=== PATIENT | female | born 1960 | race African-American/Black ===

== ENCOUNTER 2017-02-02 08:59 | Emergency (ER) | payer OTHER, MEDICAID ==
[~2017-02-02] VITALS: Ht 154.9 cm; Wt 53.5 kg
[~2017-02-02 08:59] MED LIST: AUGMENTIN 875-1 EAC1 ORAL; INDOCIN25 MG ORAL; NORCO 5-325 TA1 EACH ORAL; ZOFRAN ODT4 MG ORAL
[2017-02-02] MEDS ORDERED: oxyCODONE HCL/Acetaminophen 5/325mg ORAL ONE (09:30)
--- NOTE | 2017-02-02 09:31 | Emergency Room Report ---
History of Present Illness General Chief Complaint: Toothache Source: Patient Present Illness HPI Patient is having tooth pain. She is also vomiting. Any time any liquid is in contact with the tooth, she is in severe pain. Denies any fevers or chills. No weight loss. No medication at home for pain. Pain is 10/10, L lower tooth, aching pressure - radiates slightly to angle of jaw and neck. Trouble sleeping.. Has been seen for similar in past. - last here 2014. Prior h/o bilateral inguinal hernias which spontaneously reduce. No dysuria, diarrhea, rashes. Allergies: Coded Allergies: UNABLE TO ASSESS (Unverified , 02/02/17) Pt states she was given a "heart medication" in which she had an allergic reaction to, cannot recall name. Patient History Past Medical History: see triage record Social History: Reports: smoking Social History Narrative at home Last Menstrual Period: Hysterectomy Reviewed Nursing Documentation: PMH: Agreed, PSxH: Agreed Nursing Documentation-PMH Hx Cardiac Problems: Yes - Mitral valve prolapse. Hx Cancer: Yes - Cancer cells=hysterectomy. Hx Neurological Problems: Yes - Neck/spine surgery. Review of Systems All Other Systems: negative except mentioned in HPI Physical Exam Vital Signs Date Time Temp Pulse Resp B/P (MAP) Pulse Ox O2 Delivery O2 Flow Rate FiO2 02/02/17 09:12 98.4 69 20 110/75 99 Room Air Sp02 EP Interpretation: reviewed, normal General Appearance: well appearing, no apparent distress Head: normocephalic, atraumatic Eyes: bilateral eye normal inspection, bilateral eye PERRL ENT: hearing grossly normal, normal voice, moist mucus membranes, other - rear L lower molar with caries. No abscess visible. TTP Neck: full range of motion, supple Respiratory: no respiratory distress, speaking full sentences Cardiovascular #2: 2+ radial (L) Musculoskeletal: no calf tenderness Neurologic: alert, normal gait Psychiatric: mood/affect normal - but in pain Skin: no rash Medical Decision Making Diagnostic Impression: Primary Impression: Toothache Additional Impression: Vomiting Qualified Codes: R11.2 - Nausea with vomiting, unspecified ER Course Patient presents with painful tooth ache. The history and exam is consistent with dental ramon which is probably infected. Antibiotics and analgesics indicated. Improved with treatment. Patient stable for outpatient observation and treatment. Last Vital Signs Date Time Temp Pulse Resp B/P (MAP) Pulse Ox O2 Delivery O2 Flow Rate FiO2 02/02/17 09:45 98.4 20 110/75 99 Room Air 02/02/17 09:12 69 Status: improved Disposition: HOME, SELF-CARE Condition: Improved Scripts Amoxicillin* (AMOXIL*) 500 Mg Capsule 500 MG ORAL THREE TIMES A DAY, #21 CAP Prov: RUBÉN PINEDO D.O. 02/02/17 Amoxicillin* (AMOXIL*) 500 Mg Capsule 500 MG ORAL THREE TIMES A DAY, #21 CAP Prov: Surjit Medellin M.D. 02/02/17 Lidocaine HCl 2% Viscous (Lidocaine HCl 2% Viscous) 100 Ml Solution 1 APPLIC TOPIC QID, #30 ML Prov: Surjit Medellin M.D. 02/02/17 Ibuprofen* (MOTRIN*) 600 Mg Tablet 600 MG ORAL Q6H Y for For Pain, #16 TAB Prov: Surjit Medellin M.D. 02/02/17 Hydrocodone Bit/Acetaminophen 5-325* (NORCO 5-325*) 1 Each Tablet 1 TAB ORAL Q6H Y for For Pain, #10 TAB 0 Refills Prov: Surjit Medellin M.D. 02/02/17 Ondansetron Odt* (ZOFRAN ODT*) 4 Mg Tab.rapdis 4 MG ORAL Q8H Y for Nausea & Vomiting, #12 TAB 1 Refill Prov: Surjit Medellin M.D. 02/02/17 Referrals: NON PHYSICIAN (PCP) Surjit Medellin M.D. Feb 02, 2017 09:31
[2017-02-02] MEDS ORDERED: ZOFRAN ODT4 MG ORAL (09:35)
[2017-02-02] MEDS ORDERED: AMOXICILLIN500 MG ORAL ×2 (09:35→17:51)
[2017-02-02] MEDS ORDERED: IBUPROFEN600 MG ORAL (09:35)
[2017-02-02] MEDS ORDERED: LIDOCAINE VISC100 ML TOPIC (09:35)
[2017-02-02] MEDS ORDERED: NORCO 5-325 TA1 EACH ORAL (09:35)
[2017-02-02 09:45] VITALS: BP 110/75
== END 2017-02-02 09:45 | disposition home or self-care (01) ==
LOC: EMR 09:30
DX: K08.89 Other specified disorders of teeth and supporting structures (principal); R11.10 Vomiting, unspecified; Z85.89 Personal history of malignant neoplasm of other organs and systems
CPT/HCPCS: 99284

== ENCOUNTER 2017-07-09 01:07 | Emergency (ER) | payer MEDICAID, OTHER ==
[~2017-07-09] VITALS: Ht 165.1 cm; Wt 56.7 kg
[~2017-07-09 01:07] MED LIST changes: +AMOXICILLIN500 MG ORAL; +IBUPROFEN600 MG ORAL; +LIDOCAINE VISC100 ML TOPIC
[2017-07-09 01:23] VITALS: BP 132/73
[2017-07-09] MEDS ORDERED: ACETAMINOPHEN-1 EAC1 ORAL (01:37)
[2017-07-09] MEDS ORDERED: Norco 5mg/325mg tab ORAL ONE (01:45)
[2017-07-09] MEDS ORDERED: Ketorolac 60mg Inj IM ONE (01:45)
[2017-07-09 01:50] VITALS: BP 0/0
--- NOTE | 2017-07-09 04:03 | Emergency Room Report ---
History of Present Illness General Chief Complaint: Toothache Source: Patient Present Illness HPI Patient present with complaints of left lower dental pain after recent dental procedure She reports that she had root canal last Patient reports and now the discomfort has increased chest pain to the left lower jaw area also developed headache Increased nausea Initially patient had not reported any vomiting however Had told the nurse that she had nausea vomiting Denies any fevers or chills denies any neck pain Patient reports taking Motrin [id number] and is on antibiotics by the dentist Allergies: Coded Allergies: No Known Allergies (Unverified , 07/09/17) Patient History Past Medical History: see triage record Pertinent Family History: none Last Menstrual Period: n/a Reviewed Nursing Documentation: PMH: Agreed; PSxH: Agreed Nursing Documentation-PMH Past Medical History: No History, Except For Hx Cardiac Problems: Yes - Mitral valve prolapse. Hx Cancer: Yes - Cancer cells=hysterectomy. Hx Neurological Problems: Yes - Neck/spine surgery. Review of Systems All Other Systems: negative except mentioned in HPI Physical Exam Vital Signs Date Time Temp Pulse Resp B/P (MAP) Pulse Ox O2 Delivery O2 Flow Rate FiO2 07/09/17 01:11 98.0 67 16 132/73 100 Room Air 98.1 Sp02 EP Interpretation: reviewed, normal General Appearance: no apparent distress Head: normocephalic, atraumatic Eyes: bilateral eye PERRL, bilateral eye EOMI ENT: other - Left lower gingival area appears edematous, no trismus, airway is patent Neck: full range of motion, supple Respiratory: lungs clear Cardiovascular #1: regular rate, rhythm Gastrointestinal: non tender, soft Musculoskeletal: normal inspection Neurologic: alert, oriented x3 Skin: normal color Lymphatic: no adenopathy Medical Decision Making Diagnostic Impression: Primary Impression: Toothache ER Course Patient has some swelling to the left lower gingival area concerning for possible infectious pathology patient is under the care of specialty dental caretakers had recent procedure done Patient is on antibiotics she does require repeat evaluation by the dental specialist Patient was provided with pain medication here And is hemodynamically stable for continued outpatient follow-up Last Vital Signs Date Time Temp Pulse Resp B/P (MAP) Pulse Ox O2 Delivery O2 Flow Rate FiO2 07/09/17 01:49 98.0 07/09/17 01:11 67 16 132/73 100 Room Air Status: improved Disposition: HOME, SELF-CARE Condition: Stable Scripts Acetaminophen With Codeine (T#3) (TYLENOL #3 TAB*) Y Tab 1 TAB ORAL Q8H PRN for For Pain, #6 TAB Prov: Brice Bullock DO 07/09/17 Referrals: NON PHYSICIAN (PCP) Patient Instructions: Dental Pain Additional Instructions: Patient is provided with the discharge instructions notified to follow up with primary doctor in the next 2-3 days otherwise return to the er with any worsening symptoms. Please note that this report is being documented using [employer] technology. This can lead to erroneous entry secondary to incorrect interpretation by the dictating instrument. Brice Bullock DO July 09, 2017 04:03
== END 2017-07-09 01:50 | disposition home or self-care (01) ==
LOC: EMR 01:34
DX: K08.89 Other specified disorders of teeth and supporting structures (principal)
CPT/HCPCS: 96372; 99283

== ENCOUNTER 2018-03-23 20:21 | Emergency (ER) | payer OTHER, MEDICAID ==
[~2018-03-23] VITALS: Ht 157.5 cm; Wt 53.5 kg
[~2018-03-23 20:21] MED LIST changes: +ACETAMINOPHEN-1 EAC1 ORAL
[2018-03-23] MEDS ORDERED: NKM (20:30)
[2018-03-23 20:34] VITALS: BP 124/64
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
[2018-03-23] MEDS ORDERED: Methocarbamol 750mg tab ORAL ONE (21:00)
[2018-03-23] MEDS ORDERED: Ketorolac 60mg Inj IM ONE (21:00)
--- NOTE | 2018-03-23 21:21 | NUR ---
ED Nurse Note: medications unable to scan. manual bar code used. Rn susy verified medications.
[2018-03-23] MEDS ORDERED: ROBAXIN-750750 MG PO (21:45)
[2018-03-23] MEDS ORDERED: IBUPROFEN600 MG ORAL (21:45)
--- NOTE | 2018-03-23 21:50 | NUR ---
ED Nurse Note: pt d/c per ermd, pt given discharge and medication instructions. pt is aox4 and verbalized understanding. ID band removed. pt left ED with all belongings.
== END 2018-03-23 21:50 | disposition home or self-care (01) ==
LOC: EMR 20:50
DX: S13.9XXA Sprain of joints and ligaments of unspecified parts of neck, initial encounter (principal); S61.419A Laceration without foreign body of unspecified hand, initial encounter; Y08.89XA Assault by other specified means, initial encounter; Y92.9 Unspecified place or not applicable; R51 Headache; M54.9 Dorsalgia, unspecified; F17.200 Nicotine dependence, unspecified, uncomplicated; Z85.9 Personal history of malignant neoplasm, unspecified; Z90.710 Acquired absence of both cervix and uterus; Z98.890 Other specified postprocedural states
CPT/HCPCS: 96372; 99283

== ENCOUNTER 2018-05-02 11:21 | Emergency (ER) | payer OTHER, MEDICAID ==
[~2018-05-02] VITALS: Ht 152.4 cm; Wt 53.5 kg
[~2018-05-02 11:21] MED LIST changes: +NKM; +ROBAXIN-750750 MG PO
[2018-05-02 11:50] VITALS: BP 131/77
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
[2018-05-02] MEDS ORDERED: DiphenhydrAMINE 50mg/ml Inj IVP ONE (12:15)
[2018-05-02] MEDS ORDERED: D5NS 1,000 ML IV ONE (12:15)
--- NOTE | 2018-05-02 12:15 | NUR ---
ED Nurse Note: PT TO CT
--- NOTE | 2018-05-02 12:29 | NUR ---
ED Nurse Note: PT BACK FROM CT VIA WHEELCHAIR
[2018-05-02] MEDS ORDERED: Cyclobenzaprine 10mg Tab ORAL ONE (12:30)
[2018-05-02] MEDS ORDERED: Ketorolac 30mg Inj IV ONE (12:30)
[2018-05-02 12:46] LABS: BASOPHILS % (AUTO) 1.6 % (0.0-2.0); EOSINOPHILS % (AUTO) 1.3 % (0.0-3.0); HEMATOCRIT 37.1 % (37.0-47.0); HEMOGLOBIN 11.7 G/DL (12.0-16.0); LYMPHOCYTES % (AUTO) 39.8 % (20.0-45.0); MEAN CORPUSCULAR VOLUME 91 FL (80-99); MONOCYTES % (AUTO) 7.7 % (1.0-10.0); NEUTROPHILS % (AUTO) 49.7 % (45.0-75.0); PLATELET COUNT 186 K/UL (150-450); RED BLOOD COUNT 4.09 M/UL (4.20-5.40); RED CELL DISTRIBUTION WIDTH 12.8 % (11.6-14.8); WHITE BLOOD COUNT 6.2 K/UL (4.8-10.8)
--- NOTE | 2018-05-02 12:52 | Diagnostic Imaging Report ---
Indications: Headache, light sensitivity Technique: Spiral acquisitions obtained through the brain. Angled axial and coronal 5 x 5 mm slices were reconstructed. Total dose length product 1269.98 mGycm. CTDI vol(s) 70.38 mGy. Dose reduction achieved using automated exposure control Comparison: None. Findings: No acute intracranial hemorrhage nor edema. No mass effect nor midline shift. Normal hernandez-white differentiation. Normal size ventricles and extra-axial CSF spaces. Intact calvarium. Visualized orbits and sinuses are unremarkable. Impression: Negative The CT scanner at [facility] is accredited by the [employer] and the scans are performed using protocols designed to limit radiation exposure to as low as reasonably achievable to attain images of sufficient resolution adequate for diagnostic evaluation.
[2018-05-02 12:58] LABS: ANION GAP 9 mmol/L (5-15); BLOOD UREA NITROGEN 12 mg/dL (7-18); CALCIUM 9.8 MG/DL (8.5-10.1); CARBON DIOXIDE 30 MMOL/L (21-32); CHLORIDE 103 MMOL/L (98-107); CREATININE 0.6 MG/DL (0.55-1.30); POTASSIUM 3.6 MMOL/L (3.5-5.1); SODIUM 142 MMOL/L (136-145)
[2018-05-02 13:02] LABS: ALANINE AMINOTRANSFERASE 24 U/L (12-78); ALBUMIN 3.9 G/DL (3.4-5.0); ALKALINE PHOSPHATASE 85 U/L (46-116); ASPARTATE AMINO TRANSFERASE 26 U/L (15-37); BILIRUBIN,TOTAL 0.5 MG/DL (0.2-1.0)
[2018-05-02 13:16] LABS: APPEARANCE,URINE CLEAR; BILIRUBIN, URINE NEGATIVE (NEGATIVE); COLOR,URINE PALE YELLOW; GLUCOSE, URINE (UA) NEGATIVE (NEGATIVE); KETONES,URINE NEGATIVE (NEGATIVE); LEUKOCYTE ESTERASE ,URINE NEGATIVE (NEGATIVE); NITRITE,URINE NEGATIVE (NEGATIVE); PH,URINE 8 (4.5-8.0); PROTEIN,URINE NEGATIVE (NEGATIVE); UROBILINOGEN,URINE 1 MG/DL (0.0-1.0)
[2018-05-02 13:50] VITALS: BP 112/74
--- NOTE | 2018-05-02 14:33 | Emergency Room Report ---
History of Present Illness General Chief Complaint: Headache Source: Patient Present Illness HPI The patient states that a few days ago she woke up with pain in the right side of her neck and upper back. She denies trauma. She states that the pain is radiating to her head. She is also become sensitive to light and had an episode of vomiting. She states the pain is worse with movement. She denies sore throat or recent illness. She denies cough or congestion. She denies abdominal pain. She denies blurry vision. She has no other complaints. Allergies: Coded Allergies: No Known Allergies (Unverified , 07/09/17) Patient History Past Medical History: none, see triage record Past Surgical History: other - cervical spine surgery Social History: Denies: smoking, alcohol use, drug use Now: No Reviewed Nursing Documentation: PMH: Agreed; PSxH: Agreed Nursing Documentation-PMH Past Medical History: No History, Except For Hx Cardiac Problems: Yes - Mitral valve prolapse. Hx Cancer: Yes - Cancer cells=hysterectomy. Hx Neurological Problems: Yes - Neck/spine surgery. Review of Systems All Other Systems: negative except mentioned in HPI Physical Exam Vital Signs Date Time Temp Pulse Resp B/P (MAP) Pulse Ox O2 Delivery O2 Flow Rate FiO2 05/02/18 11:42 98.4 64 20 132/79 99 Room Air Sp02 EP Interpretation: reviewed, normal General Appearance: no apparent distress, alert, GCS 15, non-toxic Head: normocephalic, atraumatic Eyes: bilateral eye normal inspection, bilateral eye PERRL ENT: hearing grossly normal, normal pharynx, no angioedema, normal voice Neck: normal inspection, full range of motion, supple, supple/symm/no masses, tender lateral - Exquisitely ttp over the R. trapezius m. Also ttp over the scalp. Respiratory: chest non-tender, lungs clear, normal breath sounds, no respiratory distress, no retraction, no accessory muscle use, speaking full sentences Cardiovascular #1: regular rate, rhythm, no edema Gastrointestinal: normal bowel sounds, non tender, soft, non-distended, no guarding, no rebound Rectal: deferred Musculoskeletal: back normal, gait/station normal, normal range of motion, non- tender Neurologic: alert, oriented x3, responsive, motor strength/tone normal, sensory intact, speech normal Psychiatric: judgement/insight normal, memory normal, mood/affect normal, no suicidal/homicidal ideation Skin: normal color, no rash, warm/dry, well hydrated Medical Decision Making Diagnostic Impression: Primary Impression: Trapezius muscle spasm ER Course This patient has a clinical presentation consistent with trapezius muscle spasm. I did obtain a CT of the patient's head given the headache symptoms with the nausea and episode of vomiting and this was unremarkable. The patient has pain with range of motion and has tenderness to palpation along the trapezius muscle. There is no evidence of compartment syndrome. There is no neurologic deficit. The patient had complete resolution of her symptoms in the emergency department. The patient was instructed on supportive home measures. The patient states that she does have Robaxin at home. She states she will use this. No emergency medical condition was identified. The patient was given return precautions and followup instructions. Laboratory Tests Test 05/02/18 12:40 05/02/18 12:50 White Blood Count 6.2 K/UL (4.8-10.8) Red Blood Count 4.09 M/UL (4.20-5.40) L Hemoglobin 11.7 G/DL (12.0-16.0) L Hematocrit 37.1 % (37.0-47.0) Mean Corpuscular Volume 91 FL (80-99) Mean Corpuscular Hemoglobin 28.7 PG (27.0-31.0) Mean Corpuscular Hemoglobin Concent 31.6 G/DL (32.0-36.0) L Red Cell Distribution Width 12.8 % (11.6-14.8) Platelet Count 186 K/UL (150-450) Mean Platelet Volume 8.6 FL (6.5-10.1) Neutrophils (%) (Auto) 49.7 % (45.0-75.0) Lymphocytes (%) (Auto) 39.8 % (20.0-45.0) Monocytes (%) (Auto) 7.7 % (1.0-10.0) Eosinophils (%) (Auto) 1.3 % (0.0-3.0) Basophils (%) (Auto) 1.6 % (0.0-2.0) Sodium Level 142 MMOL/L (136-145) Potassium Level 3.6 MMOL/L (3.5-5.1) Chloride Level 103 MMOL/L (98-107) Carbon Dioxide Level 30 MMOL/L (21-32) Anion Gap 9 mmol/L (5-15) Blood Urea Nitrogen 12 mg/dL (7-18) Creatinine 0.6 MG/DL (0.55-1.30) Estimate Glomerular Filtration Rate > 60 mL/min (>60) Glucose Level 79 MG/DL (74-106) Calcium Level 9.8 MG/DL (8.5-10.1) Total Bilirubin 0.5 MG/DL (0.2-1.0) Aspartate Amino Transferase (AST) 26 U/L (15-37) Alanine Aminotransferase (ALT) 24 U/L (12-78) Alkaline Phosphatase 85 U/L (46-116) Total Protein 7.8 G/DL (6.4-8.2) Albumin 3.9 G/DL (3.4-5.0) Globulin 3.9 g/dL Albumin/Globulin Ratio 1.0 (1.0-2.7) Lipase 128 U/L (73-393) Urine Color Pale yellow Urine Appearance Clear Urine pH 8 (4.5-8.0) Urine Specific Romeo 1.015 (1.005-1.035) Urine Protein Negative (NEGATIVE) Urine Glucose (UA) Negative (NEGATIVE) Urine Ketones Negative (NEGATIVE) Urine Blood Negative (NEGATIVE) Urine Nitrite Negative (NEGATIVE) Urine Bilirubin Negative (NEGATIVE) Urine Urobilinogen 1 MG/DL (0.0-1.0) H Urine Leukocyte Esterase Negative (NEGATIVE) Urine HCG, Qualitative Negative (NEGATIVE) CT/MRI/US Diagnostic Results CT/MRI/US Diagnostic Results : Imaging Test Ordered: CT head Impression No acute findings. Specifically no intracranial bleed, mass effect or edema. See official report. Last Vital Signs Date Time Temp Pulse Resp B/P (MAP) Pulse Ox O2 Delivery O2 Flow Rate FiO2 05/02/18 11:50 98.2 72 19 131/77 100 Room Air Status: improved Disposition: HOME, SELF-CARE Condition: Improved Referrals: NON PHYSICIAN (PCP) Bettie Madrid DO May 02, 2018 14:33
[2018-05-02] MEDS ORDERED: IBUPROFEN800 MG ORAL (14:35)
[2018-05-02] MEDS ORDERED: LIDODERM700 M1 TOPIC (14:37)
[2018-05-02 14:48] VITALS: BP 123/76
--- NOTE | 2018-05-02 14:49 | NUR ---
ED Nurse Note: PT LAYING PEACEFULLY IN BED IN NAD. AOX4. PRESCRIPTIONS AND DISCHARGE PAPERWORK EXPLAINED TO PT. PT VERBALIZES UNDERSTANDING AND ALL QUESTIONS WERE ANSWERED. PRESCRIPTIONS AND DISCHARGE PAPERWORK GIVEN TO PT, IV AND ID WRISTBAND REMOVED. PT WALKED OUT OF ER WITH STEADY GAIT AND ALL BELONGINGS.
== END 2018-05-02 14:48 | disposition home or self-care (01) ==
LOC: EMR 12:14
DX: M62.838 Other muscle spasm (principal); R51 Headache; Z98.890 Other specified postprocedural states; Z90.710 Acquired absence of both cervix and uterus; F17.200 Nicotine dependence, unspecified, uncomplicated
CPT/HCPCS: 36415; 70450; 80053; 81003; 81025; 83690; 85025; 96361; 96374; 96375; 99284; J0780; J1200; J1885